=== PATIENT | female | born 1930 | race Caucasian/White ===

== ENCOUNTER 2017-04-20 16:43 | Inpatient (IN) | payer MEDICARE, MEDICAID ==
[~2017-04-20] VITALS: Ht 162.6 cm; Wt 54.4 kg
[2017-04-20] MEDS ORDERED: VITAMIN D250000 UNI1 ORAL (16:51)
[2017-04-20] MEDS ORDERED: IRON159 MG PO (16:51)
[2017-04-20] MEDS ORDERED: DEXILANT60 MG ORAL (16:51)
[2017-04-20] MEDS ORDERED: OXYBUTYNIN CHLOR5 M1 ORAL (16:51)
[2017-04-20] MEDS ORDERED: HYDROXYZINE HCL25 M1 PO (16:51)
[2017-04-20] MEDS ORDERED: DONEPEZIL HCL5 M2 ORAL (16:51)
[2017-04-20] MEDS ORDERED: CITALOPRAM HBR20 M1 ORAL (16:51)
[2017-04-20 18:06] LABS: BASOPHILS % (AUTO) 0.3 % (0.0-2.0); EOSINOPHILS % (AUTO) 0.4 % (0.0-3.0); LYMPHOCYTES % (AUTO) 10.6 % (20.0-45.0); MEAN CORPUSCULAR HEMOGLOBIN 29.8 PG (27.0-31.0); MEAN CORPUSCULAR HGB CONC 33.1 G/DL (32.0-36.0); MEAN CORPUSCULAR VOLUME 90 FL (80-99); MEAN PLATELET VOLUME 6.8 FL (6.5-10.1); MONOCYTES % (AUTO) 4.1 % (1.0-10.0); NEUTROPHILS % (AUTO) 84.6 % (45.0-75.0); PLATELET COUNT 211 K/UL (150-450); RED BLOOD COUNT 3.72 M/UL (4.20-5.40); RED CELL DISTRIBUTION WIDTH 14.1 % (11.6-14.8); WHITE BLOOD COUNT 17.3 K/UL (4.8-10.8)
[2017-04-20 18:21] VITALS: BP 146/74
[2017-04-20 18:28] LABS: TROPONIN I < 0.30 ng/mL (<=0.30)
[2017-04-20 18:29] LABS: ALANINE AMINOTRANSFERASE 23 U/L (3-33); ALBUMIN/GLOBULIN RATIO 0.8 (1.0-2.7); ANION GAP 15 (5-15); ASPARTATE AMINO TRANSFERASE 25 U/L (5-40); CALCIUM 8.7 mg/dL (8.6-10.2); CARBON DIOXIDE 21 mEQ/L (20-30); CHLORIDE 102 mEQ/L (98-107); CREATININE 1.8 mg/dL (0.5-0.9); HEMOLYSIS 3; POTASSIUM 4.4 mEQ/L (3.4-4.9); SODIUM 138 mEQ/L (135-145); TOTAL PROTEIN 6.9 g/dL (6.6-8.7)
[2017-04-20 18:41] LABS: CKMB 1.7 ng/mL (< 3.8)
[2017-04-20 19:53] VITALS: BP 126/84
[2017-04-20 21:38] VITALS: BP 148/107
--- NOTE | 2017-04-20 22:09 | Emergency Room Report ---
History of Present Illness General Chief Complaint: Syncope Source: EMS Present Illness HPI 87-year-old female presents to ED for evaluation. Per EMS patient had syncopal episode at home. Patient never fell or hit her head. Welding Technician witnessed. Upon arrival patient is awake and alert. Has dementia and appears at her baseline. No signs of distress. Son-in-law bedside states that patient appears at her baseline. No fevers or chills. No chest pain or shortness of breath. No aggravating relieving factors. No other associated symptoms Allergies: Coded Allergies: No Known Allergies (Unverified , 04/20/17) Patient History Past Medical History: dementia Past Surgical History: none Pertinent Family History: none Social History: Denies: alcohol use, drug use, smoking Now: No Immunizations: UTD Reviewed Nursing Documentation: PMH: Agreed, PSxH: Agreed Nursing Documentation-PMH Past Medical History: No History, Except For History Of Psychiatric Problem: Yes - ALZHEIMERS Review of Systems All Other Systems: limited Physical Exam Vital Signs Date Time Temp Pulse Resp B/P Pulse Ox O2 Delivery O2 Flow Rate FiO2 04/20/17 16:37 98.8 98 16 112/68 94 Room Air 04/20/17 19:53 3.0 Sp02 EP Interpretation: reviewed, normal General Appearance: no apparent distress, alert, GCS 15, non-toxic Head: normocephalic, atraumatic Eyes: bilateral eye PERRL, bilateral eye normal inspection ENT: hearing grossly normal, normal pharynx, no angioedema, normal voice Neck: full range of motion, supple/symm/no masses Respiratory: chest non-tender, lungs clear, normal breath sounds, speaking full sentences Cardiovascular #1: regular rate, rhythm, no edema Cardiovascular #2: 2+ carotid (R), 2+ carotid (L), 2+ radial (R), 2+ radial (L) , 2+ dorsalis pedis (R), 2+ dorsalis pedis (L) Gastrointestinal: normal bowel sounds, non tender, soft, non-distended, no guarding, no rebound Rectal: deferred Genitourinary: normal inspection, no CVA tenderness Musculoskeletal: back normal, gait/station normal, normal range of motion, non- tender Neurologic: other - dementia Psychiatric: other - dementia Reflexes: 3+ bicep (R), 3+ bicep (L), 3+ tricep (R), 3+ tricep (L), 3+ knee (R) , 3+ knee (L) Skin: normal color, no rash, warm/dry, well hydrated Lymphatic: no adenopathy Medical Decision Making Diagnostic Impression: Primary Impression: Syncope Qualified Codes: R55 - Syncope and collapse Additional Impressions: Renal insufficiency CHF (congestive heart failure) Qualified Codes: I50.9 - Heart failure, unspecified ER Course Hospital Course 87-year-old F presents ED s/p syncopal episode. Differential diagnoses include: [place]/unstable angina, arrythmia, dehydration, Clinical course Patient placed on stretcher. on basket assembler. After initial history and physical I ordered labs, EKG, chest x-ray, IVFs labs reviewed- noted leukocytosis, hemoglobin/hematocrit ok, BUN/Cr elevated, troponins negative family is refusing Oneal catheter or straight cath EKG-NSR, twave inversions in lateral leads Chest x-ray- cardiomegaly. effusion IV fluids given. Antibiotics given Discussed case with PMD Dr. Calvert; asked that we admit to Dr Dallas Case discussed with Dr. Dallas and he agreed to accept the patient to his service for further care and support I. I feel this is a highly complex case requiring extensive working including EKG/Rhythm strip, Xray/CT/US, Blood/urine lab work, repeat exams while in ED, and administration of strong opiates/narcotics for pain control, admission to hospital or close patient follow up. Diagnosis - syncope, renal insufficiency, CHF admitted to telemetry in serious condition Labs Test 04/20/17 17:41 White Blood Count 17.3 K/UL (4.8-10.8) Red Blood Count 3.72 M/UL (4.20-5.40) Hemoglobin 11.1 G/DL (12.0-16.0) Hematocrit 33.5 % (37.0-47.0) Mean Corpuscular Volume 90 FL (80-99) Mean Corpuscular Hemoglobin 29.8 PG (27.0-31.0) Mean Corpuscular Hemoglobin Concent 33.1 G/DL (32.0-36.0) Red Cell Distribution Width 14.1 % (11.6-14.8) Platelet Count 211 K/UL (150-450) Mean Platelet Volume 6.8 FL (6.5-10.1) Neutrophils (%) (Auto) 84.6 % (45.0-75.0) Lymphocytes (%) (Auto) 10.6 % (20.0-45.0) Monocytes (%) (Auto) 4.1 % (1.0-10.0) Eosinophils (%) (Auto) 0.4 % (0.0-3.0) Basophils (%) (Auto) 0.3 % (0.0-2.0) Sodium Level 138 mEQ/L (135-145) Potassium Level 4.4 mEQ/L (3.4-4.9) Chloride Level 102 mEQ/L (98-107) Carbon Dioxide Level 21 mEQ/L (20-30) Anion Gap 15 (5-15) Blood Urea Nitrogen 12 mg/dL (7-23) Creatinine 1.8 mg/dL (0.5-0.9) Estimat Glomerular Filtration Rate mL/min (>60) Glucose Level 159 mg/dL (74-106) Calcium Level 8.7 mg/dL (8.6-10.2) Total Bilirubin 0.6 mg/dL (0.0-1.2) Aspartate Amino Transf (AST/SGOT) 25 U/L (5-40) Alanine Aminotransferase (ALT/SGPT) 23 U/L (3-33) Alkaline Phosphatase 94 U/L (35-104) Total Creatine Kinase 50 U/L (26-140) Creatine Kinase MB 1.7 ng/mL (< 3.8) Creatine Kinase MB Relative Index 3.4 Troponin I < 0.30 ng/mL (<=0.30) Pro-B-Type Natriuretic Peptide 2149 pg/mL (0-450) Total Protein 6.9 g/dL (6.6-8.7) Albumin 3.2 g/dL (3.5-5.2) Globulin 3.7 g/dL Albumin/Globulin Ratio 0.8 (1.0-2.7) EKG Diagnostic Results Rate: normal Rhythm: NSR ST Segments: other - twave inversions in lateral leads ASA given to the pt in ED: No Rhythm Strip Diag. Results EP Interpretation: yes Rhythm: NSR, no PVC's, no ectopy Chest X-Ray Diagnostic Results Chest X-Ray Diagnostic Results : Chest X-Ray Ordered: Yes # of Views/Limited/Complete: 1 View Indication: Other - syncope EP Interpretation: Yes Interpretation: no consolidation, no pneumothorax, no acute cardiopulmonary disease, other - cardiomegaly. R effusion Impression: Other - cardiomegaly Interpreting ER Provider: Electronically signed by Michel Aguilar MD Last Vital Signs Date Time Temp Pulse Resp B/P Pulse Ox O2 Delivery O2 Flow Rate FiO2 04/20/17 21:38 97.0 89 20 148/107 94 Nasal Cannula 2.0 Status: improved Disposition: ADMITTED INPATIENT Condition: Serious Referrals: NON PHYSICIAN (PCP) MICHEL AGUILAR M.D. Apr 20, 2017 22:09
[2017-04-21] MEDS ORDERED: Acetaminophen 500mg (ES) tab ORAL PRN (00:45)
[2017-04-21 04:00] VITALS: BP 135/78
[2017-04-21 04:03] LABS: TROPONIN I < 0.30 ng/mL (<=0.30)
--- NOTE | 2017-04-21 09:20 | Cardiac Electrophysiology PN ---
Subjective Subjective [id number] Objective Last 24 Hour Vital Signs Date Time Temp Pulse Resp B/P Pulse Ox O2 Delivery O2 Flow Rate FiO2 04/21/17 04:00 97.0 111 20 135/78 100 Nasal Cannula 2.0 04/21/17 03:55 102 04/20/17 23:49 103 04/20/17 21:59 89 04/20/17 21:38 97.0 89 20 148/107 94 Nasal Cannula 2.0 04/20/17 20:35 97.4 78 22 126/84 97 Nasal Cannula 3.0 04/20/17 19:53 97.4 78 22 126/84 97 Nasal Cannula 3.0 04/20/17 18:21 98.8 76 15 146/74 96 Room Air 04/20/17 16:37 98.8 98 16 112/68 94 Room Air Intake and Output 04/20/17 04/21/17 19:00 07:00 Intake Total 650 ml Output Total 0 ml Balance 650 ml Intake IV Total 650 ml Output Urine Total 0 ml Laboratory Tests Test 04/20/17 17:41 04/21/17 02:45 White Blood Count 17.3 K/UL (4.8-10.8) H Red Blood Count 3.72 M/UL (4.20-5.40) L Hemoglobin 11.1 G/DL (12.0-16.0) L Hematocrit 33.5 % (37.0-47.0) L Mean Corpuscular Volume 90 FL (80-99) Mean Corpuscular Hemoglobin 29.8 PG (27.0-31.0) Mean Corpuscular Hemoglobin Concent 33.1 G/DL (32.0-36.0) Red Cell Distribution Width 14.1 % (11.6-14.8) Platelet Count 211 K/UL (150-450) Mean Platelet Volume 6.8 FL (6.5-10.1) Neutrophils (%) (Auto) 84.6 % (45.0-75.0) H Lymphocytes (%) (Auto) 10.6 % (20.0-45.0) L Monocytes (%) (Auto) 4.1 % (1.0-10.0) Eosinophils (%) (Auto) 0.4 % (0.0-3.0) Basophils (%) (Auto) 0.3 % (0.0-2.0) Sodium Level 138 mEQ/L (135-145) Potassium Level 4.4 mEQ/L (3.4-4.9) Chloride Level 102 mEQ/L (98-107) Carbon Dioxide Level 21 mEQ/L (20-30) Anion Gap 15 (5-15) Blood Urea Nitrogen 12 mg/dL (7-23) Creatinine 1.8 mg/dL (0.5-0.9) H Estimat Glomerular Filtration Rate mL/min (>60) Glucose Level 159 mg/dL (74-106) H Calcium Level 8.7 mg/dL (8.6-10.2) Total Bilirubin 0.6 mg/dL (0.0-1.2) Aspartate Amino Transf (AST/SGOT) 25 U/L (5-40) Alanine Aminotransferase (ALT/SGPT) 23 U/L (3-33) Alkaline Phosphatase 94 U/L (35-104) Total Creatine Kinase 50 U/L (26-140) Creatine Kinase MB 1.7 ng/mL (< 3.8) Creatine Kinase MB Relative Index 3.4 Troponin I < 0.30 ng/mL (<=0.30) < 0.30 ng/mL (<=0.30) Pro-B-Type Natriuretic Peptide 2149 pg/mL (0-450) H Total Protein 6.9 g/dL (6.6-8.7) Albumin 3.2 g/dL (3.5-5.2) L Globulin 3.7 g/dL Albumin/Globulin Ratio 0.8 (1.0-2.7) BOO KELLEY Apr 21, 2017 09:20
[2017-04-21 09:23] VITALS: BP 148/85
[2017-04-21 12:15] VITALS: BP 137/65
--- NOTE | 2017-04-21 12:30 | Consultation ---
DATE OF CONSULTATION: 04/20/2017 CARDIOLOGY CONSULTATION CONSULTING PHYSICIAN: Oscar Myers M.D. REFERRING PHYSICIAN: Axel Dallas M.D. REASON FOR CONSULTATION: Abnormal electrocardiogram suggestive of lateral ischemia as well as syncope. HISTORY OF PRESENT ILLNESS: The patient is an 87-year-old nonverbal lady with history of dementia and G-tube placement, who was brought in to the Hospital for syncopal episode that was witnessed by the patient's industrial roof plumber. The patient did not have a fall. admission, the patient was awake with no sign of distress. The patient's at baseline. The patient's EKG showed lateral ischemic changes, but the patient is comfortable and nonverbal. Most of the information is available from the patient or review of the patient's record. REVIEW OF SYSTEMS: Cannot be obtained. PAST MEDICAL HISTORY: Include: 1. Dysphagia, status post PEG placement. 2. Dementia. FAMILY HISTORY: Noncontributory. SOCIAL HISTORY: Does not smoke or drink alcohol. PHYSICAL EXAMINATION: VITAL SIGNS: Blood pressure is 135/78, pulse is 111, and respirations 18. HEAD AND NECK: No JVD. LUNGS: Coarse rhonchi. CARDIOVASCULAR: Tachycardic. S1 and S2. No gallop or murmur. ABDOMEN: Soft. A G-tube is present. EXTREMITIES: No pitting edema. covered dressing. LABORATORY AND DIAGNOSTIC DATA: EKG showed sinus tachycardia at 108 and lateral T-wave inversions. No evidence of ischemia. White count 17.0, hemoglobin 11.5, hematocrit 33.5, and platelet count 211,000. Sodium 138, potassium 4.4, BUN of 12, and creatinine of 1.8. . Troponins negative x2. BNP is 2149. ASSESSMENT AND PLAN: 1. Questionable syncope. The patient will be ruled out for myocardial infarction. EKG showed lateral ischemic changes. We will watch the patient on telemetry for any arrhythmia. Also, we will get back on echocardiogram for further evaluation. 2. Bilateral ischemia and 12 lead EKG. The patient is nonverbal and ordered without myocardial infarction. We will get an echocardiogram. In view of the patient's renal failure, her age, and frail condition, I thinks she would benefit from a cardiac stress test or cardiac catheterization. Need to be treated medically. 3. Elevated BNP of more than 2000. We will get an echocardiogram renal failure came down to 1.8. 4. Dysphagia, status post PEG placement. Thank you very much, Dr. Dallas, for allowing me to participate in the care of this patient. Please do not hesitate to contact me for any questions regarding my evaluation. Oscar Myers M.D. DR: LEATHA JOB#: [id number] CC:
--- NOTE | 2017-04-21 12:30 | Consultation ---
Consult Note Consult Note asked to eval for Cr 1.8 87-year-old female presents to ED for evaluation. Per EMS patient had syncopal episode at home. Patient never fell or hit her head. Ventilated Rib Fitter witnessed. Upon arrival patient is awake and alert. Has dementia and appears at her baseline. No signs of distress. Son-in-law bedside states that patient appears at her baseline. No fevers or chills. No chest pain or shortness of breath. No aggravating relieving factors. No other associated symptoms Past Medical History: dementia History Of Psychiatric Problem: Yes - ALZHEIMERS Cant give history- Examined- Data reviewed Assessment/Plan Cr 1.8- Renal failure- Acute vs Chronic Encephalopathy Anemia- Alzheimers leukocytosis Plan: Ua and urine studies- Slow Hydrate- Monitor renal parameters- Avoid mind altering JOIE Pavon Apr 21, 2017 12:30
--- NOTE | 2017-04-21 12:40 | Diagnostic Imaging Report ---
Indication: Dyspnea Comparison: None A single view chest radiograph was obtained. Findings: No definite infiltrate or pulmonary vascular congestion identified. The heart is enlarged. The aorta is mildly enlarged consistent with atherosclerotic vascular disease. The bones are osteopenic. Impression: No acute disease
--- NOTE | 2017-04-21 13:20 | History and Physical ---
History of Present Illness General Date patient seen: Apr 21, 2017 Time patient seen: 13:19 Reason for Hospitalization: Possible syncope Present Illness HPI 87y/o female with pmh of advanced dementia, HTN, chronic diastolic heart failure , CKD, Afib, aspiration pneumonia, s/p PEG who presents with possible syncope. Per daughter and pt's , pt was laughing when she noted to have possible "choked". She had couldn't catch her breath and her face turned blue. Paramedics were called. Pt was not eating at the time. She does eat small amts of puree foods and also gets tube feeds via PEG. She was recently treated for aspiration PNA at [facility] in 11/2016. No reports of f/c, n/v, d/c, chest pain, abd pain. Pt is A&Ox1 at baseline. She require max assist to stand and walk. She is usually incontinent of stool and urine. Allergies: Coded Allergies: CODEINE (Verified Allergy, Unknown, 04/21/17) MORPHINE (Verified Allergy, Unknown, 04/21/17) Medication History Scheduled Citalopram Hydrobromide* (Citalopram Hbr*), 20 MG ORAL DAILY, (Reported) Dexlansoprazole (Dexilant), 60 MG ORAL DAILY, (Reported) Donepezil Hcl* (Donepezil Hcl*), 5 MG ORAL DAILY, (Reported) Ergocalciferol (Vitamin D2)* (Vitamin D*), 50,000 UNIT ORAL ONCE A WEEK, ( Reported) Ferrous Sulfate, Dried (Iron), 65 MG PO DAILY, (Reported) Miscellaneous Medications Hydroxyzine Hcl (Hydroxyzine Hcl), 25 MG PO, (Reported) Oxybutynin Chloride (Oxybutynin Chloride), 5 MG ORAL, (Reported) Patient History History Provided By: Patient, Family Member, Medical Record, EMS Healthcare decision maker DPOA is daughter Veronic Resuscitation status Full Code Advanced Directive on File No Past Medical/Surgical History Past Medical/Surgical History: (1) Chronic diastolic (congestive) heart failure (2) Atrial fibrillation (3) HTN (hypertension) (4) Aspiration pneumonia (5) Advanced dementia (6) Feeding by G-tube (7) CKD (chronic kidney disease) Family History Family History: Patient reports no known family medical history. Social History Social History: (1) lives at home with caregiver Review of Systems ROS Narrative Unable to obtain given advanced dementia Physical Exam Physical Exam Narrative General: alert, cooperative, no distress, appears stated age Head: normocephalic, without obvious abnormality, atraumatic Eyes: conjunctivae/corneas clear. PERRL, EOM's intact Throat: lips, mucosa, and tongue normal. MMM Neck: supple, symmetrical, trachea midline, and no JVD Lungs: clear to auscultation bilaterally Heart: regular rate and rhythm, S1, S2 normal, no murmur, click, rub or gallop Abdomen: soft, non-tender, non-distended, bowel sounds normal; +PEG c/d/i Extremities: extremities normal, atraumatic, no cyanosis or edema, +b/l heel pressure ulcers--no e/o purulent drainage Pulses: 2+ and symmetric Skin: skin color, texture, turgor normal; no rashes or lesions Neurologic: grossly normal, no focal deficits Last 24 Hour Vital Signs Date Time Temp Pulse Resp B/P Pulse Ox O2 Delivery O2 Flow Rate FiO2 04/21/17 09:23 98.3 96 19 148/85 98 Nasal Cannula 2.0 04/21/17 04:00 97.0 111 20 135/78 100 Nasal Cannula 2.0 04/21/17 03:55 102 04/20/17 23:49 103 04/20/17 21:59 89 04/20/17 21:38 97.0 89 20 148/107 94 Nasal Cannula 2.0 04/20/17 20:35 97.4 78 22 126/84 97 Nasal Cannula 3.0 04/20/17 19:53 97.4 78 22 126/84 97 Nasal Cannula 3.0 04/20/17 18:21 98.8 76 15 146/74 96 Room Air 04/20/17 16:37 98.8 98 16 112/68 94 Room Air Intake and Output 04/20/17 04/21/17 19:00 07:00 Intake Total 650 ml Output Total 0 ml Balance 650 ml Intake IV Total 650 ml Output Urine Total 0 ml Laboratory Tests Test 04/20/17 17:41 04/21/17 02:45 White Blood Count 17.3 K/UL (4.8-10.8) H Red Blood Count 3.72 M/UL (4.20-5.40) L Hemoglobin 11.1 G/DL (12.0-16.0) L Hematocrit 33.5 % (37.0-47.0) L Mean Corpuscular Volume 90 FL (80-99) Mean Corpuscular Hemoglobin 29.8 PG (27.0-31.0) Mean Corpuscular Hemoglobin Concent 33.1 G/DL (32.0-36.0) Red Cell Distribution Width 14.1 % (11.6-14.8) Platelet Count 211 K/UL (150-450) Mean Platelet Volume 6.8 FL (6.5-10.1) Neutrophils (%) (Auto) 84.6 % (45.0-75.0) H Lymphocytes (%) (Auto) 10.6 % (20.0-45.0) L Monocytes (%) (Auto) 4.1 % (1.0-10.0) Eosinophils (%) (Auto) 0.4 % (0.0-3.0) Basophils (%) (Auto) 0.3 % (0.0-2.0) Sodium Level 138 mEQ/L (135-145) Potassium Level 4.4 mEQ/L (3.4-4.9) Chloride Level 102 mEQ/L (98-107) Carbon Dioxide Level 21 mEQ/L (20-30) Anion Gap 15 (5-15) Blood Urea Nitrogen 12 mg/dL (7-23) Creatinine 1.8 mg/dL (0.5-0.9) H Estimat Glomerular Filtration Rate mL/min (>60) Glucose Level 159 mg/dL (74-106) H Calcium Level 8.7 mg/dL (8.6-10.2) Total Bilirubin 0.6 mg/dL (0.0-1.2) Aspartate Amino Transf (AST/SGOT) 25 U/L (5-40) Alanine Aminotransferase (ALT/SGPT) 23 U/L (3-33) Alkaline Phosphatase 94 U/L (35-104) Total Creatine Kinase 50 U/L (26-140) Creatine Kinase MB 1.7 ng/mL (< 3.8) Creatine Kinase MB Relative Index 3.4 Troponin I < 0.30 ng/mL (<=0.30) < 0.30 ng/mL (<=0.30) Pro-B-Type Natriuretic Peptide 2149 pg/mL (0-450) H Total Protein 6.9 g/dL (6.6-8.7) Albumin 3.2 g/dL (3.5-5.2) L Globulin 3.7 g/dL Albumin/Globulin Ratio 0.8 (1.0-2.7) L Height (Feet): 5 Height (Inches): 4.00 Weight (Pounds): 120 Medications Current Medications Medications (Trade) Dose Ordered Sig/Patrica Route PRN Reason Start Time Stop Time Status Last Admin Dose Admin Acetaminophen (Tylenol) 650 mg Q6H PRN ORAL Mild Pain/Temp > 100.5 04/21/17 13:15 05/21/17 13:14 UNV Acetaminophen 500 mg 500 mg Q6H PRN ORAL Mild Pain/Temp > 100.5 04/21/17 00:45 05/21/17 00:44 04/21/17 01:15 Citalopram Hydrobromide (celeXA) 20 mg DAILY GT 04/21/17 13:15 05/21/17 13:14 UNV Docusate Sodium (Colace) 100 mg TWICE A DAY PRN ORAL diarrhea 04/21/17 13:15 05/21/17 13:14 UNV Donepezil HCl (Aricept) 5 mg DAILY GT 04/21/17 13:15 05/21/17 13:14 UNV Heparin Sodium (Porcine) (Heparin 5000 units/ml) 5,000 units EVERY 12 HOURS SUBQ 04/21/17 21:00 05/21/17 20:59 UNV Polyethylene Glycol (Miralax) 17 gm DAILY PRN GT Constipation 04/21/17 13:15 05/21/17 13:14 UNV Sodium Chloride (0.45% NS 1000ml) 1,000 ml @ 75 mls/hr [id number] IV 04/21/17 13:00 04/22/17 02:19 Assessment/Plan Problem List: (1) Sepsis Assessment & Plan: Possible aspiration PNA/pneumonitis though CXR unremarkable vs UTI vs infected b/l heel ulcers ICD Codes: A41.9 - Sepsis, unspecified organism SNOMED: 43524684 (2) Chronic diastolic (congestive) heart failure ICD Codes: I50.32 - Chronic diastolic (congestive) heart failure SNOMED: 30045052, 846780517 (3) HTN (hypertension) ICD Codes: I10 - Essential (primary) hypertension SNOMED: 18763283 (4) Advanced dementia ICD Codes: F03.90 - Unspecified dementia without behavioral disturbance SNOMED: 38921346 (5) Feeding by G-tube ICD Codes: Z93.1 - Gastrostomy status SNOMED: 574412153, 993233989 (6) CKD (chronic kidney disease) ICD Codes: N18.9 - Chronic kidney disease, unspecified SNOMED: 068122637 Status: stable Assessment/Plan Admit inpt Cardiology, pulmonology, renal consulted Empiric abx: zosyn F/u cultures Repeat CXR mIVFs but caution given h/o CHF Cont home meds via G tube Cont tube feeds via G tube Trend CBC, BMP Pain control, bowel regimen Wound care consult given b/l heel ulcers Supportive care DVT Prophylaxis: HSQ Code Status: Full Hospital Classification Declaration: Based on this initial evaluation, and depending on the patient's clinical course, I anticipate that this patient will require hospitalization for 2-3 days for sepsis and close respiratory/ hemodynamic monitoring. Disposition: Once the patient is stable to leave the hospital, I anticipate the patient will likely be discharged to the following environment: home with HH + CG vs SNF I spent 70 minutes on this patient's case, and 38 minutes were dedicated to counseling and/or care coordination. Discussed with patient/family, nursing staff, SW/CM, cardiology, renal, pulmonology regarding clinical status, treatment course, and disposition planning. Time of note may not reflect time of encounter. Shaji Benavides M.D. Apr 21, 2017 13:20
--- NOTE | 2017-04-21 13:49 | Consultation ---
History of Present Illness General Date patient seen: Apr 21, 2017 Chief Complaint: Syncope Referring physician: Dr. Girard Present Illness HPI 87 year old female with end-stage dementia, with PEG for the last 6 month, residing home was taken by paramedics b/o episode of chocking. Pt was found to have increased leukocytosis and renal insufficiency and admitted for further evaluation. Allergies: Coded Allergies: CODEINE (Verified Allergy, Unknown, 04/21/17) MORPHINE (Verified Allergy, Unknown, 04/21/17) Medication History Scheduled Citalopram Hydrobromide* (Citalopram Hbr*), 20 MG ORAL DAILY, (Reported) Dexlansoprazole (Dexilant), 60 MG ORAL DAILY, (Reported) Donepezil Hcl* (Donepezil Hcl*), 5 MG ORAL DAILY, (Reported) Ergocalciferol (Vitamin D2)* (Vitamin D*), 50,000 UNIT ORAL ONCE A WEEK, ( Reported) Ferrous Sulfate, Dried (Iron), 65 MG PO DAILY, (Reported) Miscellaneous Medications Hydroxyzine Hcl (Hydroxyzine Hcl), 25 MG PO, (Reported) Oxybutynin Chloride (Oxybutynin Chloride), 5 MG ORAL, (Reported) Patient History Healthcare decision maker Resuscitation status Full Code Advanced Directive on File No Past Medical/Surgical History Past Medical/Surgical History: (1) Feeding by G-tube (2) Advanced dementia Review of Systems Constitutional: Reports: no symptoms Eye: Reports: no symptoms All Other Systems: negative except mentioned in HPI Physical Exam General Appearance: WD/WN, no apparent distress Lines, tubes and drains: peripheral HEENT: normocephalic, atraumatic Neck: non-tender, normal alignment Respiratory/Chest: chest wall non-tender, lungs clear Cardiovascular/Chest: normal peripheral pulses, normal rate Abdomen: normal bowel sounds, non tender, hyperactive bowel sounds Genitourinary/Rectal: normal genital exam Skin Exam: normal pigmentation Neurologic: photoengraving retoucher II-XII grossly normal Last 24 Hour Vital Signs Date Time Temp Pulse Resp B/P Pulse Ox O2 Delivery O2 Flow Rate FiO2 04/21/17 09:23 98.3 96 19 148/85 98 Nasal Cannula 2.0 04/21/17 04:00 97.0 111 20 135/78 100 Nasal Cannula 2.0 04/21/17 03:55 102 04/20/17 23:49 103 04/20/17 21:59 89 04/20/17 21:38 97.0 89 20 148/107 94 Nasal Cannula 2.0 04/20/17 20:35 97.4 78 22 126/84 97 Nasal Cannula 3.0 04/20/17 19:53 97.4 78 22 126/84 97 Nasal Cannula 3.0 04/20/17 18:21 98.8 76 15 146/74 96 Room Air 04/20/17 16:37 98.8 98 16 112/68 94 Room Air Intake and Output 04/20/17 04/21/17 19:00 07:00 Intake Total 650 ml Output Total 0 ml Balance 650 ml Intake IV Total 650 ml Output Urine Total 0 ml Laboratory Tests Test 04/20/17 17:41 04/21/17 02:45 White Blood Count 17.3 K/UL (4.8-10.8) H Red Blood Count 3.72 M/UL (4.20-5.40) L Hemoglobin 11.1 G/DL (12.0-16.0) L Hematocrit 33.5 % (37.0-47.0) L Mean Corpuscular Volume 90 FL (80-99) Mean Corpuscular Hemoglobin 29.8 PG (27.0-31.0) Mean Corpuscular Hemoglobin Concent 33.1 G/DL (32.0-36.0) Red Cell Distribution Width 14.1 % (11.6-14.8) Platelet Count 211 K/UL (150-450) Mean Platelet Volume 6.8 FL (6.5-10.1) Neutrophils (%) (Auto) 84.6 % (45.0-75.0) H Lymphocytes (%) (Auto) 10.6 % (20.0-45.0) L Monocytes (%) (Auto) 4.1 % (1.0-10.0) Eosinophils (%) (Auto) 0.4 % (0.0-3.0) Basophils (%) (Auto) 0.3 % (0.0-2.0) Sodium Level 138 mEQ/L (135-145) Potassium Level 4.4 mEQ/L (3.4-4.9) Chloride Level 102 mEQ/L (98-107) Carbon Dioxide Level 21 mEQ/L (20-30) Anion Gap 15 (5-15) Blood Urea Nitrogen 12 mg/dL (7-23) Creatinine 1.8 mg/dL (0.5-0.9) H Estimat Glomerular Filtration Rate mL/min (>60) Glucose Level 159 mg/dL (74-106) H Calcium Level 8.7 mg/dL (8.6-10.2) Total Bilirubin 0.6 mg/dL (0.0-1.2) Aspartate Amino Transf (AST/SGOT) 25 U/L (5-40) Alanine Aminotransferase (ALT/SGPT) 23 U/L (3-33) Alkaline Phosphatase 94 U/L (35-104) Total Creatine Kinase 50 U/L (26-140) Creatine Kinase MB 1.7 ng/mL (< 3.8) Creatine Kinase MB Relative Index 3.4 Troponin I < 0.30 ng/mL (<=0.30) < 0.30 ng/mL (<=0.30) Pro-B-Type Natriuretic Peptide 2149 pg/mL (0-450) H Total Protein 6.9 g/dL (6.6-8.7) Albumin 3.2 g/dL (3.5-5.2) L Globulin 3.7 g/dL Albumin/Globulin Ratio 0.8 (1.0-2.7) L Height (Feet): 5 Height (Inches): 4.00 Weight (Pounds): 120 Medications Current Medications Medications (Trade) Dose Ordered Sig/Patrica Route PRN Reason Start Time Stop Time Status Last Admin Dose Admin Acetaminophen 500 mg 500 mg Q6H PRN ORAL Mild Pain/Temp > 100.5 04/21/17 00:45 05/21/17 00:44 04/21/17 01:15 Acetaminophen 650 mg 650 mg Q6H PRN ORAL Mild Pain/Temp > 100.5 04/21/17 13:15 05/21/17 13:14 UNV Citalopram Hydrobromide (celeXA) 20 mg DAILY GT 04/21/17 13:15 05/21/17 13:14 UNV Docusate Sodium (Colace) 100 mg TWICE A DAY PRN ORAL diarrhea 04/21/17 13:15 05/21/17 13:14 UNV Donepezil HCl (Aricept) 5 mg DAILY GT 04/21/17 13:15 05/21/17 13:14 UNV Heparin Sodium (Porcine) (Heparin 5000 units/ml) 5,000 units EVERY 12 HOURS SUBQ 04/21/17 21:00 05/21/17 20:59 UNV Piperacillin Sod/ Tazobactam Sod/ Dextrose (Zosyn/D5W) 110 ml @ 27.5 mls/hr EVERY 8 HOURS IVPB 04/21/17 14:00 04/26/17 13:59 UNV Polyethylene Glycol (Miralax) 17 gm DAILY PRN GT Constipation 04/21/17 13:15 05/21/17 13:14 UNV Sodium Chloride (0.45% NS 1000ml) 1,000 ml @ 75 mls/hr [id number] IV 04/21/17 13:00 04/22/17 02:19 04/21/17 13:26 Assessment/Plan Problem List: (1) Sepsis ICD Codes: A41.9 - Sepsis, unspecified organism SNOMED: 53718981 (2) Renal insufficiency ICD Codes: N28.9 - Disorder of kidney and ureter, unspecified SNOMED: 059747105 (3) Feeding by G-tube ICD Codes: Z93.1 - Gastrostomy status SNOMED: 722720494, 364836243 (4) Advanced dementia ICD Codes: F03.90 - Unspecified dementia without behavioral disturbance SNOMED: 30329950 Assessment/Plan olvera culture IV antibiotics check urine, anemia w/u continue gtube check electrolytes d/w and son at the bed site d/w JADE Gong Apr 21, 2017 13:49
[2017-04-21] MEDS ORDERED: Piperacillin/Tazobactam 3.375 GM in D5W 110 ML IVPB SCH (14:00)
[2017-04-21 14:05] LABS: APPEARANCE,URINE SLIGHTLY CLOUDY; KETONES,URINE NEGATIVE (NEGATIVE); LEUKOCYTE ESTERASE ,URINE 1+ (NEGATIVE); NITRITE,URINE NEGATIVE (NEGATIVE); PH,URINE 8 (4.5-8.0); PROTEIN,URINE 3+ (NEGATIVE); UROBILINOGEN,URINE NORMAL MG/DL (0.0-1.0)
--- NOTE | 2017-04-21 14:06 | Diagnostic Imaging Report ---
Indication: Dyspnea Comparison: 04/20/17 A single view chest radiograph was obtained. Findings: There is a small right pleural effusion suspected. Heart size is normal. There is prominence of the pulmonary interstitium noted. Bones are osteopenic. Impression: Mild interstitial edema suspected. Small right pleural effusion
[2017-04-21 14:16] LABS: BACTERIA,URINE FEW /HPF; HYALINE CASTS, URINE 0-2 /LPF; MUCUS,URINE FEW /LPF (NONE/OCC); SQUAMOUS EPITHELIAL CELL,UR OCCASIONAL /LPF (NONE/OCC)
[2017-04-21] MEDS ORDERED: Acetaminophen 650mg/20.3ml GT PRN (14:30)
[2017-04-21] MEDS ORDERED: Miralax 17gm pkt GT PRN (14:30)
[2017-04-21] MEDS ORDERED: Docusate 100mg/10ml Liq GT PRN (14:30)
[2017-04-21] MEDS: Zosyn 2.25 gm in D5W 55ml IV SCH ×2 (15:35→21:46)
[2017-04-21] MEDS: Donepezil 5mg Tab GT SCH (15:35)
[2017-04-21] MEDS: Citalopram 20mg Tab GT SCH (15:35)
[2017-04-21 15:48] LABS: MEAN CORPUSCULAR HEMOGLOBIN 28.4 PG (27.0-31.0); MEAN CORPUSCULAR HGB CONC 32.3 G/DL (32.0-36.0); MEAN CORPUSCULAR VOLUME 88 FL (80-99); MEAN PLATELET VOLUME 7.3 FL (6.5-10.1); PLATELET COUNT 197 K/UL (150-450); RED BLOOD COUNT 3.75 M/UL (4.20-5.40); RED CELL DISTRIBUTION WIDTH 14.2 % (11.6-14.8); WHITE BLOOD COUNT 16.3 K/UL (4.8-10.8)
[2017-04-21 15:52] LABS: LYMPHOCYTES % (AUTO) 3.9 % (20.0-45.0); NEUTROPHILS % (AUTO) 92.4 % (45.0-75.0)
[2017-04-21 15:53] LABS: BASOPHILS % (AUTO) 0.3 % (0.0-2.0); EOSINOPHILS % (AUTO) 0.1 % (0.0-3.0); MONOCYTES % (AUTO) 3.4 % (1.0-10.0)
[2017-04-21 16:05] LABS: ANION GAP 13 (5-15); CALCIUM 8.6 mg/dL (8.6-10.2); CARBON DIOXIDE 22 mEQ/L (20-30); CHLORIDE 99 mEQ/L (98-107); CREATININE 1.7 mg/dL (0.5-0.9); HEMOLYSIS 12; MAGNESIUM 1.7 mg/dL (1.7-2.5); PHOSPHORUS 3.2 mg/dL (2.5-4.8); POTASSIUM 4.4 mEQ/L (3.4-4.9); SODIUM 134 mEQ/L (135-145); URIC ACID 5.7 mg/dL (3.0-7.5)
[2017-04-21 16:06] VITALS: BP 150/103
[2017-04-21] MEDS: Lactobacillus-GG tablet GT SCH (17:50)
[2017-04-21] MEDS ORDERED: Lactobacillus-GG tablet ORAL SCH (18:00)
[2017-04-21 20:17] VITALS: BP 198/93
[2017-04-21 21:00] VITALS: BP 125/80
[2017-04-21] MEDS: Heparin 5000 units/ml inj SUBQ SCH (21:21)
[2017-04-22] VITALS (7 sets, daily range): BP systolic 114–193; BP diastolic 65–100
--- NOTE | 2017-04-22 01:32 | Wound Care Consultation ---
Wound Assessment Wound Assessment #1: Wound Number: #1 Wound Present on Admission: Yes New Wound: No Status Change of Wound: No Wound Location Body Site Modif: left Wound Location Body Site: heel Wound Type: pressure ulcer [place] Test: Does not [place] Pressure Ulcer Stage: III Wound Thickness: Full Thickness Wound Length: 1.5 Wound Width: 2.5 Wound Depth: 0.2 Percent of Wound [place]/Red: 100 Wound Drainage Description: Serosanguineous Wound Drainage Amount: Scant Wound Drainage Odor: None/Absent Tissue Surrounding Wound: Macerated Wound General Appearance: Reddened, Draining Wound Assessment #2: Wound Number: #2 Wound Present on Admission: Yes New Wound: No Status Change of Wound: No Wound Location Body Site Modif: right Wound Location Body Site: heel Wound Type: pressure ulcer [place] Test: Does not [place] Pressure Ulcer Stage: III Wound Thickness: Full Thickness Wound Length: 1.5 Wound Width: 2.5 Wound Depth: 0.2 Percent of Wound [place]/Red: 100 Wound Drainage Description: Serosanguineous Wound Drainage Amount: Moderate Wound Drainage Odor: None/Absent Tissue Surrounding Wound: Macerated Wound General Appearance: Reddened, Draining Wound Comment #1 Left heel stage III pressure ulcer #2 Right heel stage III pressure ulcer Recommendation -Local wound care per protocol -keep clean and dry -Turn and reposition -Optimize nutrition -Heel protector on both heels -Offload both heels -Assess and f/u accordingly for any changes GIORGIO GUZMÁN RN Apr 22, 2017 01:32
[2017-04-22] MEDS: Zosyn 2.25 gm in D5W 55ml IV SCH (06:29)
[2017-04-22 08:08] LABS: MEAN CORPUSCULAR HGB CONC 32.1 G/DL (32.0-36.0); MEAN CORPUSCULAR VOLUME 87 FL (80-99); MEAN PLATELET VOLUME 7.7 FL (6.5-10.1); PLATELET COUNT 187 K/UL (150-450); RED BLOOD COUNT 3.69 M/UL (4.20-5.40); WHITE BLOOD COUNT 11.8 K/UL (4.8-10.8)
[2017-04-22 08:19] LABS: PROTHROMBIN TIME 10.6 SEC (9.30-11.50)
[2017-04-22 08:31] LABS: ANISOCYTOSIS 1+; BAND NEUTROPHILS % (MANUAL) 0 % (0-8); BASOPHILS % (MANUAL) 0 % (0-2); EOSINOPHILS % (MANUAL) 0 % (0-3); HYPOCHROMASIA 1+; LYMPHOCYTES % (MANUAL) 4 % (20-45); NEUTROPHILS % (MANUAL) 94 % (45-75); PLATELET ESTIMATE ADEQUATE; PLATELET MORPHOLOGY NORMAL; TOTAL CELLS COUNTED 100
[2017-04-22 08:33] LABS: ALANINE AMINOTRANSFERASE 19 U/L (3-33); ALBUMIN/GLOBULIN RATIO 0.7 (1.0-2.7); ANION GAP 13 (5-15); ASPARTATE AMINO TRANSFERASE 22 U/L (5-40); CALCIUM 8.4 mg/dL (8.6-10.2); CARBON DIOXIDE 23 mEQ/L (20-30); CHLORIDE 96 mEQ/L (98-107); CHOLESTEROL 162 mg/dL (< 200); CREATININE 1.8 mg/dL (0.5-0.9); HEMOLYSIS 2; LDL CHOLESTEROL (CALC.) 94 mg/dL (60-99); POTASSIUM 3.7 mEQ/L (3.4-4.9); SODIUM 132 mEQ/L (135-145); TOTAL PROTEIN 6.7 g/dL (6.6-8.7)
[2017-04-22 08:34] LABS: TROPONIN I < 0.30 ng/mL (<=0.30)
[2017-04-22 08:39] LABS: PATH BLOOD SMEAR/OMC SENT TO PATHOLOGIST
[2017-04-22 08:48] LABS: FERRITIN 322 ng/mL (13-150)
[2017-04-22] MEDS: Lactobacillus-GG tablet GT SCH (08:48)
[2017-04-22] MEDS: Citalopram 20mg Tab GT SCH (08:49)
[2017-04-22] MEDS: Heparin 5000 units/ml inj SUBQ SCH (08:50)
[2017-04-22] MEDS: Donepezil 5mg Tab GT SCH (08:51)
[2017-04-22 08:52] LABS: HEMOLYSIS 2; IRON 13 ug/dL (37-145); TOTAL IRON BINDING CAPACITY 165 ug/dL (250-400)
[2017-04-22 09:13] LABS: ERYTHROCYTE SEDIMENTATION RATE 86 MM/HR (0-42)
[2017-04-22 09:24] LABS: CRP QUANT 8.5 mg/dL (< 0.5); MAGNESIUM 1.7 mg/dL (1.7-2.5); PHOSPHORUS 3.4 mg/dL (2.5-4.8); URIC ACID 4.5 mg/dL (3.0-7.5)
[2017-04-22 09:38] LABS: RETICULOCYTE COUNT 0.9 % (0.0-2.0)
--- NOTE | 2017-04-22 09:39 | Diagnostic Imaging Report ---
Indication:Elevated Bun and Creatinine. Technique: Grayscale and duplex Doppler imaging of the kidneys performed. Comparison: None Findings: There is generalized cortical atrophy present within the kidneys. The right kidney is about 9 cm the left kidney is about 10 cm in length. There is no hydronephrosis. Oneal catheter is noted. IVC is unremarkable. There is a right pleural effusion. Impression: Cortical atrophy of both kidneys noted. Oneal catheter Right pleural effusion
[2017-04-22 09:59] LABS: OTHERS PATHOLOGIST COMMENT
[2017-04-22] MEDS ORDERED: 1/2 NS 1000ml IV ONE (10:22)
[2017-04-22] MEDS ORDERED: NS 275ml ONE (10:22)
[2017-04-22] MEDS ORDERED: Metoprolol Tartrate 12.5mg TAB ORAL SCH (10:45)
--- NOTE | 2017-04-22 10:49 | General Progress Note ---
Assessment/Plan Status: unchanged Status Narrative Cr 1.8 Assessment/Plan stable; Cr 1.8- Renal failure- Acute vs Chronic Encephalopathy Anemia- Alzheimers leukocytosis Plan: Adjust BP meds Ua and urine studies- Slow Hydrate- Monitor renal parameters- Avoid mind altering meds per consultants Subjective ROS Limited/Unobtainable: No Constitutional: Reports: malaise Allergies: Coded Allergies: CODEINE (Verified Allergy, Unknown, 04/21/17) MORPHINE (Verified Allergy, Unknown, 04/21/17) Objective Last 24 Hour Vital Signs Date Time Temp Pulse Resp B/P Pulse Ox O2 Delivery O2 Flow Rate FiO2 04/22/17 08:49 98 141/74 04/22/17 08:00 97.9 98 20 141/74 96 Nasal Cannula 2.0 04/22/17 08:00 98 04/22/17 04:30 103 132/70 04/22/17 04:00 98.6 103 17 180/90 94 Nasal Cannula 2.0 04/22/17 04:00 100 04/22/17 00:30 105 130/65 04/22/17 00:12 98.4 105 18 193/100 98 Room Air 04/22/17 00:00 104 04/21/17 21:19 99 198/93 04/21/17 21:00 104 125/80 04/21/17 20:17 99.3 99 17 198/93 96 Nasal Cannula 2.0 04/21/17 20:00 105 04/21/17 16:06 97.2 88 19 150/103 100 Room Air 04/21/17 16:00 103 04/21/17 12:15 99.0 90 19 137/65 97 Nasal Cannula 2.0 04/21/17 12:00 92 Intake and Output 04/21/17 04/22/17 19:00 07:00 Intake Total 680 ml 630 ml Output Total 350 ml Balance 330 ml 630 ml Intake Free Water 160 ml 100 ml IV Total 280 ml Tube Feeding 240 ml 530 ml Output Urine Total 350 ml Laboratory Tests 04/21/17 13:35: Urine Color Yellow, Urine Appearance Slightly cloudy, Urine pH 8, Urine Specific [place] 1.010, Urine Protein 3+H, Urine Glucose (UA) Negative, Urine Ketones Negative, Urine Occult Blood 2+H, Urine Nitrite Negative, Urine Bilirubin Negative, Urine Urobilinogen Normal, Urine Leukocyte Esterase 1+H, Urine RBC 2-4H, Urine WBC 5-10H, Urine Squamous Epithelial Cells Occasional, Urine Bacteria Few, Urine Hyaline Casts 0-2H, Urine Mucus FewH, Urine Eosinophils Rare, Urine Random Sodium 143, Urine Potassium Timed 56 04/21/17 15:20: White Blood Count 16.3H, Red Blood Count 3.75L, Hemoglobin 10.6L, Hematocrit 33.0L, Mean Corpuscular Volume 88, Mean Corpuscular Hemoglobin 28.4, Mean Corpuscular Hemoglobin Concent 32.3, Red Cell Distribution Width 14.2, Platelet Count 197, Mean Platelet Volume 7.3, Neutrophils (%) (Auto) 92.4H, Lymphocytes ( %) (Auto) 3.9L, Monocytes (%) (Auto) 3.4, Eosinophils (%) (Auto) 0.1, Basophils (%) (Auto) 0.3, Sodium Level 134L, Potassium Level 4.4, Chloride Level 99, Carbon Dioxide Level 22, Anion Gap 13, Blood Urea Nitrogen 17, Creatinine 1.7H, Estimat Glomerular Filtration Rate , Glucose Level 173H, Uric Acid 5.7, Calcium Level 8.6, Phosphorus Level 3.2, Magnesium Level 1.7, Total Creatine Kinase 68 04/22/17 07:35: White Blood Count 11.8H, Red Blood Count 3.69L, Hemoglobin 10.4L, Hematocrit 32.3L, Mean Corpuscular Volume 87, Mean Corpuscular Hemoglobin 28.0, Mean Corpuscular Hemoglobin Concent 32.1, Red Cell Distribution Width 14.0, Platelet Count 187, Mean Platelet Volume 7.7, Neutrophils (%) (Auto) , Lymphocytes (%) ( Auto) , Monocytes (%) (Auto) , Eosinophils (%) (Auto) , Basophils (%) (Auto) , Sodium Level 132L, Potassium Level 3.7, Chloride Level 96L, Carbon Dioxide Level 23, Anion Gap 13, Blood Urea Nitrogen 22, Creatinine 1.8H, Estimat Glomerular Filtration Rate , Glucose Level 184H, Uric Acid 4.5, Calcium Level 8.4L, Phosphorus Level 3.4, Magnesium Level 1.7, Total Creatine Kinase 110, Differential Total Cells Counted 100, Neutrophils % (Manual) 94H, Lymphocytes % (Manual) 4L, Monocytes % (Manual) 2, Eosinophils % (Manual) 0, Basophils % ( Manual) 0, Band Neutrophils 0, Other Cell Type Pathologist comment, Platelet Estimate Adequate, Platelet Morphology Normal, Hypochromasia 1+, Anisocytosis 1+ , Erythrocyte Sedimentation Rate 86H, Reticulocyte Count 0.9, Prothrombin Time 10.6, Prothromb Time International Ratio 1.0, Activated Partial Thromboplast Time 31, Iron Level 13L, Total Iron Binding Capacity 165L, Percent Iron Saturation 8L, Unsaturated Iron Binding 152, Ferritin 322H, Total Bilirubin 0.6 , Gamma Glutamyl Transpeptidase 17, Aspartate Amino Transf (AST/SGOT) 22, Alanine Aminotransferase (ALT/SGPT) 19, Alkaline Phosphatase 91, Lactate Dehydrogenase 271H, Troponin I < 0.30, C-Reactive Protein, Quantitative 8.5H, Pro-B-Type Natriuretic Peptide 9623H, Total Protein 6.7, Albumin 2.9L, Globulin 3.8, Albumin/Globulin Ratio 0.7L, Triglycerides Level 69, Cholesterol Level 162 , LDL Cholesterol 94, HDL Cholesterol 54, Cholesterol/HDL Ratio 3.0L, Carcinoembryonic Antigen 2.7, Vitamin B12 Level 513, Folate [Pending], Thyroid Stimulating Hormone (TSH) 1.280, Free Thyroxine 1.22 Height (Feet): 5 Height (Inches): 4.00 Weight (Pounds): 120 General Appearance: no apparent distress Objective no change in PE JOIE ALEXANDER Apr 22, 2017 10:49
[2017-04-22] MEDS ORDERED: Iron Sucrose 200 MG in NS 110 ML IVPB ONE (11:00)
[2017-04-22] MEDS ORDERED: NaCl 3% 500ml 250 ML IV ONE (12:00)
--- NOTE | 2017-04-22 13:13 | Pulmonology Progress Note ---
Assessment/Plan Problems: (1) Sepsis (2) Renal insufficiency (3) Feeding by G-tube (4) Advanced dementia Assessment/Plan wbc decreasing on zosyn afebrile tolerating feeding dvt prophylaxis heart rate and bp are normal, might go to med/surg Subjective ROS Limited/Unobtainable: No Constitutional: Reports: no symptoms Respiratory: Reports: no symptoms Allergies: Coded Allergies: CODEINE (Verified Allergy, Unknown, 04/21/17) MORPHINE (Verified Allergy, Unknown, 04/21/17) Objective Last 24 Hour Vital Signs Date Time Temp Pulse Resp B/P Pulse Ox O2 Delivery O2 Flow Rate FiO2 04/22/17 11:54 97 114/65 04/22/17 08:49 98 141/74 04/22/17 08:00 97.9 98 20 141/74 96 Nasal Cannula 2.0 04/22/17 08:00 98 04/22/17 04:30 103 132/70 04/22/17 04:00 98.6 103 17 180/90 94 Nasal Cannula 2.0 04/22/17 04:00 100 04/22/17 00:30 105 130/65 04/22/17 00:12 98.4 105 18 193/100 98 Room Air 04/22/17 00:00 104 04/21/17 21:19 99 198/93 04/21/17 21:00 104 125/80 04/21/17 20:17 99.3 99 17 198/93 96 Nasal Cannula 2.0 04/21/17 20:00 105 04/21/17 16:06 97.2 88 19 150/103 100 Room Air 04/21/17 16:00 103 Intake and Output 04/21/17 04/22/17 19:00 07:00 Intake Total 680 ml 630 ml Output Total 350 ml Balance 330 ml 630 ml Intake Free Water 160 ml 100 ml IV Total 280 ml Tube Feeding 240 ml 530 ml Output Urine Total 350 ml General Appearance: WD/WN HEENT: normocephalic, atraumatic Respiratory/Chest: chest wall non-tender, lungs clear Breasts: no masses Cardiovascular: normal peripheral pulses Abdomen: normal bowel sounds, soft, non tender Genitourinary: normal external genitalia Extremities: no clubbing Skin: no rash Laboratory Tests 04/21/17 13:35: Urine Color Yellow, Urine Appearance Slightly cloudy, Urine pH 8, Urine Specific [place] 1.010, Urine Protein 3+H, Urine Glucose (UA) Negative, Urine Ketones Negative, Urine Occult Blood 2+H, Urine Nitrite Negative, Urine Bilirubin Negative, Urine Urobilinogen Normal, Urine Leukocyte Esterase 1+H, Urine RBC 2-4H, Urine WBC 5-10H, Urine Squamous Epithelial Cells Occasional, Urine Bacteria Few, Urine Hyaline Casts 0-2H, Urine Mucus FewH, Urine Eosinophils Rare, Urine Random Sodium 143, Urine Potassium Timed 56 04/21/17 15:20: White Blood Count 16.3H, Red Blood Count 3.75L, Hemoglobin 10.6L, Hematocrit 33.0L, Mean Corpuscular Volume 88, Mean Corpuscular Hemoglobin 28.4, Mean Corpuscular Hemoglobin Concent 32.3, Red Cell Distribution Width 14.2, Platelet Count 197, Mean Platelet Volume 7.3, Neutrophils (%) (Auto) 92.4H, Lymphocytes ( %) (Auto) 3.9L, Monocytes (%) (Auto) 3.4, Eosinophils (%) (Auto) 0.1, Basophils (%) (Auto) 0.3, Sodium Level 134L, Potassium Level 4.4, Chloride Level 99, Carbon Dioxide Level 22, Anion Gap 13, Blood Urea Nitrogen 17, Creatinine 1.7H, Estimat Glomerular Filtration Rate , Glucose Level 173H, Uric Acid 5.7, Calcium Level 8.6, Phosphorus Level 3.2, Magnesium Level 1.7, Total Creatine Kinase 68 04/22/17 07:35: White Blood Count 11.8H, Red Blood Count 3.69L, Hemoglobin 10.4L, Hematocrit 32.3L, Mean Corpuscular Volume 87, Mean Corpuscular Hemoglobin 28.0, Mean Corpuscular Hemoglobin Concent 32.1, Red Cell Distribution Width 14.0, Platelet Count 187, Mean Platelet Volume 7.7, Neutrophils (%) (Auto) , Lymphocytes (%) ( Auto) , Monocytes (%) (Auto) , Eosinophils (%) (Auto) , Basophils (%) (Auto) , Sodium Level 132L, Potassium Level 3.7, Chloride Level 96L, Carbon Dioxide Level 23, Anion Gap 13, Blood Urea Nitrogen 22, Creatinine 1.8H, Estimat Glomerular Filtration Rate , Glucose Level 184H, Uric Acid 4.5, Calcium Level 8.4L, Phosphorus Level 3.4, Magnesium Level 1.7, Total Creatine Kinase 110, Differential Total Cells Counted 100, Neutrophils % (Manual) 94H, Lymphocytes % (Manual) 4L, Monocytes % (Manual) 2, Eosinophils % (Manual) 0, Basophils % ( Manual) 0, Band Neutrophils 0, Other Cell Type Pathologist comment, Platelet Estimate Adequate, Platelet Morphology Normal, Hypochromasia 1+, Anisocytosis 1+ , Erythrocyte Sedimentation Rate 86H, Reticulocyte Count 0.9, Prothrombin Time 10.6, Prothromb Time International Ratio 1.0, Activated Partial Thromboplast Time 31, Iron Level 13L, Total Iron Binding Capacity 165L, Percent Iron Saturation 8L, Unsaturated Iron Binding 152, Ferritin 322H, Total Bilirubin 0.6 , Gamma Glutamyl Transpeptidase 17, Aspartate Amino Transf (AST/SGOT) 22, Alanine Aminotransferase (ALT/SGPT) 19, Alkaline Phosphatase 91, Lactate Dehydrogenase 271H, Troponin I < 0.30, C-Reactive Protein, Quantitative 8.5H, Pro-B-Type Natriuretic Peptide 9623H, Total Protein 6.7, Albumin 2.9L, Globulin 3.8, Albumin/Globulin Ratio 0.7L, Triglycerides Level 69, Cholesterol Level 162 , LDL Cholesterol 94, HDL Cholesterol 54, Cholesterol/HDL Ratio 3.0L, Carcinoembryonic Antigen 2.7, Vitamin B12 Level 513, Folate [Pending], Thyroid Stimulating Hormone (TSH) 1.280, Free Thyroxine 1.22 Current Medications Medications (Trade) Dose Ordered Sig/Patrica Route PRN Reason Start Time Stop Time Status Last Admin Dose Admin Acetaminophen (Tylenol) 500 mg Q6H PRN ORAL Mild Pain/Temp > 100.5 04/21/17 00:45 05/21/17 00:44 04/21/17 01:15 Acetaminophen 650 mg 650 mg Q6H PRN GT Mild Pain/Temp > 100.5 04/21/17 14:30 05/21/17 14:29 Amlodipine Besylate 5 mg 5 mg Q12HR GT 04/21/17 21:00 05/21/17 20:59 04/22/17 08:49 Citalopram Hydrobromide (celeXA) 20 mg DAILY GT 04/21/17 15:00 05/21/17 14:59 04/22/17 08:49 Clonidine HCl (Catapres) 0.1 mg Q2H PRN GT SBP > 170 04/21/17 20:15 05/21/17 20:14 Docusate Sodium (Colace) 100 mg BID PRN GT Constipation 04/21/17 14:30 05/21/17 14:29 Donepezil HCl (Aricept) 5 mg DAILY GT 04/21/17 14:00 05/21/17 13:59 04/22/17 08:51 Heparin Sodium (Porcine) (Heparin 5000 units/ml) 5,000 units EVERY 12 HOURS SUBQ 04/21/17 21:00 05/21/17 20:59 04/22/17 08:50 Lactobacillus Acidophilus (Culturelle) 1 tab TWICE A DAY GT 04/21/17 18:00 05/21/17 17:59 04/22/17 08:48 Metoprolol Tartrate (Lopressor) 12.5 mg Q12HR ORAL 04/22/17 10:45 05/22/17 10:44 04/22/17 11:54 Piperacillin Sod/ Tazobactam Sod/ Dextrose (Zosyn/D5W) 55 ml @ 110 mls/hr Q8HR IV 04/21/17 15:30 04/26/17 15:29 04/22/17 06:29 Polyethylene Glycol (Miralax) 17 gm DAILY PRN GT Constipation 04/21/17 14:30 05/21/17 14:29 Sodium Chloride (Hypertonic Saline) 250 ml @ 30 mls/hr ONCE ONCE IV 04/22/17 12:00 04/22/17 20:19 04/22/17 12:51 JADE PAZ Apr 22, 2017 13:13
[2017-04-22] MEDS ORDERED: AUGMENTIN 875-1 EAC1 ORAL (13:27)
--- NOTE | 2017-04-22 13:32 | Discharge Summary ---
Discharge Summary Hospital Course Date of Admission Apr 20, 2017 at 17:48 Date of Discharge 04/22/17 Admitting Diagnosis concern for syncope Reason for Hospitalization: sepsis HPI 87y/o female with pmh of advanced dementia, HTN, chronic diastolic heart failure , CKD, Afib, aspiration pneumonia, s/p PEG who presents with possible syncope. Per daughter and pt's , pt was laughing when she noted to have possible "choked". She had couldn't catch her breath and her face turned blue. Paramedics were called. Pt was not eating at the time. She does eat small amts of puree foods and also gets tube feeds via PEG. She was recently treated for aspiration PNA at [facility] in 11/2016. No reports of f/c, n/v, d/c, chest pain, abd pain. Pt is A&Ox1 at baseline. She require max assist to stand and walk. She is usually incontinent of stool and urine. Consultations Cardiology Pulmonology Hospital Course Pt was admitted given concern for sepsis. Source thought to be possible aspiration pneumonia. Pt was treated w/ zosyn and symptomatically improved. Per family, she returned to baseline. She was transitioned to PO augmentin on discharge. Discharge physical exam: General: alert, cooperative, no distress, appears stated age Head: normocephalic, without obvious abnormality, atraumatic Eyes: conjunctivae/corneas clear. PERRL, EOM's intact Throat: lips, mucosa, and tongue normal. MMM Neck: supple, symmetrical, trachea midline, and no JVD Lungs: clear to auscultation bilaterally Heart: regular rate and rhythm, S1, S2 normal, no murmur, click, rub or gallop Abdomen: soft, non-tender, non-distended, bowel sounds normal; +PEG c/d/i Extremities: extremities normal, atraumatic, no cyanosis or edema, +b/l heel pressure ulcers--no e/o purulent drainage Pulses: 2+ and symmetric Skin: skin color, texture, turgor normal; no rashes or lesions Neurologic: grossly normal, no focal deficits Discharge Medications New Medications: Amoxicillin/Potassium Clav 875-125* (Augmentin 875-125 Tablet*) 1 Each Tablet 1 TAB ORAL TWICE A DAY for 5 Days, TAB Continued Medications: Citalopram Hydrobromide* (Citalopram Hbr*) 20 Mg Tablet 20 MG ORAL DAILY, TAB Dexlansoprazole (Dexilant) 60 Mg Cap.bp 60 MG ORAL DAILY, CAP Donepezil Hcl* (Donepezil Hcl*) 5 Mg Tab.rapdis 5 MG ORAL DAILY, TAB Ferrous Sulfate, Dried (Iron) 159 Mg Tablet.er 65 MG PO DAILY, TAB Hydroxyzine Hcl (Hydroxyzine Hcl) 25 Mg Tablet 25 MG PO, TAB Oxybutynin Chloride (Oxybutynin Chloride) 5 Mg Tablet 5 MG ORAL, #30 TAB 0 Refills Discharge Condition Upon Discharge: stable Discharge Disposition Patient was discharged to home w/ home health + CG Discharge Diagnoses: (1) Sepsis (2) Aspiration pneumonia (3) Chronic diastolic (congestive) heart failure (4) HTN (hypertension) (5) CKD (chronic kidney disease) (6) Feeding by G-tube (7) Advanced dementia Shaji Benavides M.D. Apr 22, 2017 13:32
--- NOTE | 2017-04-22 15:02 | Cardiac Electrophysiology PN ---
Assessment/Plan Assessment/Plan 1. Questionable syncope. The patient will be ruled out for myocardial infarction. EKG showed lateral ischemic changes. Echo EF 55%. 2. Lateral ischemia on 12 lead EKG. The patient is nonverbal and ruled out myocardial infarction. In view of the patient's renal failure, her age, and frail condition, I think she would not benefit from a cardiac stress test or cardiac catheterization. Need to be treated medically. 3. Elevated BNP of more than 2000. EF normal. Could be due to renal failure. 4. Dysphagia, status post PEG placement. DW RN and family Subjective Subjective Comfortable in NAD and family at bedside. Objective Last 24 Hour Vital Signs Date Time Temp Pulse Resp B/P Pulse Ox O2 Delivery O2 Flow Rate FiO2 04/22/17 12:00 98.1 97 18 114/65 97 Nasal Cannula 2.0 04/22/17 11:54 97 114/65 04/22/17 08:49 98 141/74 04/22/17 08:00 97.9 98 20 141/74 96 Nasal Cannula 2.0 04/22/17 08:00 98 04/22/17 04:30 103 132/70 04/22/17 04:00 98.6 103 17 180/90 94 Nasal Cannula 2.0 04/22/17 04:00 100 04/22/17 00:30 105 130/65 04/22/17 00:12 98.4 105 18 193/100 98 Room Air 04/22/17 00:00 104 04/21/17 21:19 99 198/93 04/21/17 21:00 104 125/80 04/21/17 20:17 99.3 99 17 198/93 96 Nasal Cannula 2.0 04/21/17 20:00 105 04/21/17 16:06 97.2 88 19 150/103 100 Room Air 04/21/17 16:00 103 Intake and Output 04/21/17 04/22/17 19:00 07:00 Intake Total 680 ml 630 ml Output Total 350 ml Balance 330 ml 630 ml Intake Free Water 160 ml 100 ml IV Total 280 ml Tube Feeding 240 ml 530 ml Output Urine Total 350 ml Laboratory Tests Test 04/21/17 15:20 04/22/17 07:35 White Blood Count 16.3 K/UL (4.8-10.8) H 11.8 K/UL (4.8-10.8) H Red Blood Count 3.75 M/UL (4.20-5.40) L 3.69 M/UL (4.20-5.40) L Hemoglobin 10.6 G/DL (12.0-16.0) L 10.4 G/DL (12.0-16.0) L Hematocrit 33.0 % (37.0-47.0) L 32.3 % (37.0-47.0) L Mean Corpuscular Volume 88 FL (80-99) 87 FL (80-99) Mean Corpuscular Hemoglobin 28.4 PG (27.0-31.0) 28.0 PG (27.0-31.0) Mean Corpuscular Hemoglobin Concent 32.3 G/DL (32.0-36.0) 32.1 G/DL (32.0-36.0) Red Cell Distribution Width 14.2 % (11.6-14.8) 14.0 % (11.6-14.8) Platelet Count 197 K/UL (150-450) 187 K/UL (150-450) Mean Platelet Volume 7.3 FL (6.5-10.1) 7.7 FL (6.5-10.1) Neutrophils (%) (Auto) 92.4 % (45.0-75.0) H % (45.0-75.0) Lymphocytes (%) (Auto) 3.9 % (20.0-45.0) L % (20.0-45.0) Monocytes (%) (Auto) 3.4 % (1.0-10.0) % (1.0-10.0) Eosinophils (%) (Auto) 0.1 % (0.0-3.0) % (0.0-3.0) Basophils (%) (Auto) 0.3 % (0.0-2.0) % (0.0-2.0) Sodium Level 134 mEQ/L (135-145) L 132 mEQ/L (135-145) L Potassium Level 4.4 mEQ/L (3.4-4.9) 3.7 mEQ/L (3.4-4.9) Chloride Level 99 mEQ/L (98-107) 96 mEQ/L (98-107) L Carbon Dioxide Level 22 mEQ/L (20-30) 23 mEQ/L (20-30) Anion Gap 13 (5-15) 13 (5-15) Blood Urea Nitrogen 17 mg/dL (7-23) 22 mg/dL (7-23) Creatinine 1.7 mg/dL (0.5-0.9) H 1.8 mg/dL (0.5-0.9) H Estimat Glomerular Filtration Rate mL/min (>60) mL/min (>60) Glucose Level 173 mg/dL (74-106) H 184 mg/dL (74-106) H Uric Acid 5.7 mg/dL (3.0-7.5) 4.5 mg/dL (3.0-7.5) Calcium Level 8.6 mg/dL (8.6-10.2) 8.4 mg/dL (8.6-10.2) L Phosphorus Level 3.2 mg/dL (2.5-4.8) 3.4 mg/dL (2.5-4.8) Magnesium Level 1.7 mg/dL (1.7-2.5) 1.7 mg/dL (1.7-2.5) Total Creatine Kinase 68 U/L (26-140) 110 U/L (26-140) Differential Total Cells Counted 100 Neutrophils % (Manual) 94 % (45-75) H Lymphocytes % (Manual) 4 % (20-45) L Monocytes % (Manual) 2 % (1-10) Eosinophils % (Manual) 0 % (0-3) Basophils % (Manual) 0 % (0-2) Band Neutrophils 0 % (0-8) Other Cell Type Pathologist comment Platelet Estimate Adequate Platelet Morphology Normal Hypochromasia 1+ Anisocytosis 1+ Erythrocyte Sedimentation Rate 86 MM/HR (0-42) H Reticulocyte Count 0.9 % (0.0-2.0) Prothrombin Time 10.6 SEC (9.30-11.50) Prothromb Time International Ratio 1.0 (0.9-1.1) Activated Partial Thromboplast Time 31 SEC (23-33) Iron Level 13 ug/dL (37-145) L Total Iron Binding Capacity 165 ug/dL (250-400) L Percent Iron Saturation 8 % (15-50) L Unsaturated Iron Binding 152 ug/dL (112-346) Ferritin 322 ng/mL (13-150) H Total Bilirubin 0.6 mg/dL (0.0-1.2) Gamma Glutamyl Transpeptidase 17 U/L (5-36) Aspartate Amino Transf (AST/SGOT) 22 U/L (5-40) Alanine Aminotransferase (ALT/SGPT) 19 U/L (3-33) Alkaline Phosphatase 91 U/L (35-104) Lactate Dehydrogenase 271 U/L (135-230) H Troponin I < 0.30 ng/mL (<=0.30) C-Reactive Protein, Quantitative 8.5 mg/dL (< 0.5) H Pro-B-Type Natriuretic Peptide 9623 pg/mL (0-450) H Total Protein 6.7 g/dL (6.6-8.7) Albumin 2.9 g/dL (3.5-5.2) L Globulin 3.8 g/dL Albumin/Globulin Ratio 0.7 (1.0-2.7) L Triglycerides Level 69 mg/dL (< 150) Cholesterol Level 162 mg/dL (< 200) LDL Cholesterol 94 mg/dL (60-99) HDL Cholesterol 54 mg/dL (> 60) Cholesterol/HDL Ratio 3.0 (3.3-4.4) L Carcinoembryonic Antigen 2.7 ng/mL Vitamin B12 Level 513 pg/mL (211-946) Folate Pending Thyroid Stimulating Hormone (TSH) 1.280 uIU/mL (0.300-4.500) Free Thyroxine 1.22 ng/dL (0.86-1.85) Objective HEAD AND NECK: No JVD. LUNGS: Coarse rhonchi. CARDIOVASCULAR: Tachycardic. S1 and S2. No gallop or murmur. ABDOMEN: Soft. A G-tube is present. EXTREMITIES: No pitting edema. BOO SMITH Apr 22, 2017 15:02
[2017-04-22] MEDS ORDERED: D5NS 1000ml IV ONE (16:59)
[2017-04-22] MEDS ORDERED: Tubing IV Secondary IV ONE ×2 (16:59)
[2017-04-22] MEDS ORDERED: Zosyn 3.375gm q12h **Extended infusion IVPB SCH ×2 (18:00)
== END 2017-04-22 17:00 | disposition home or self-care (01) | DRG 720 ==
LOC: EDBD 16:43 → EMR 17:23 → 2E 17:48 → EDBEDREQ 19:06 → 2E 23:30
DX: A41.9 Sepsis, unspecified organism (principal); J69.0 Pneumonitis due to inhalation of food and vomit; I50.32 Chronic diastolic (congestive) heart failure; L97.409 Non-pressure chronic ulcer of unspecified heel and midfoot with unspecified severity; R13.10 Dysphagia, unspecified; Z43.1 Encounter for attention to gastrostomy; G30.9 Alzheimer's disease, unspecified; F02.80 Dementia in other diseases classified elsewhere, unspecified severity, without behavioral disturbance, psychotic disturbance, mood disturbance, and anxiety; Z88.6 Allergy status to analgesic agent; I12.9 Hypertensive chronic kidney disease with stage 1 through stage 4 chronic kidney disease, or unspecified chronic kidney disease; N18.9 Chronic kidney disease, unspecified
CPT/HCPCS: 36415; 71010; 76775; 80048; 80053; 80061; 81001; 82378; 82550; 82553; 82607; 82728; 82746; 82977; 83540; 83550; 83615; 83735; 83880; 84100; 84133; 84300; 84439; 84443; 84484; 84550; 85007; 85025; 85044; 85060; 85610; 85651; 85730; 86140; 89050; 93005; 93306